=== PATIENT | male | born 2000 | race Caucasian/White ===

== ENCOUNTER 2019-09-13 12:03 | Emergency (ER) | payer OTHER ==
[~2019-09-13] VITALS: Ht 177.8 cm; Wt 99.8 kg
[~2019-09-13 12:03] MED LIST: IBUP600 PO; MOM; [UNRECOGNIZED DRUG - OTHER]
== END 2019-09-13 13:49 | disposition home or self-care (01) ==
LOC: ER 12:03
DX: S61.012A Laceration without foreign body of left thumb without damage to nail, initial encounter (principal); W45.8XXA Other foreign body or object entering through skin, initial encounter
CPT/HCPCS: 12002; 99282-25

== ENCOUNTER 2022-11-11 00:50 | Emergency (ER) | payer OTHER ==
[~2022-11-11] VITALS: Ht 175.3 cm; Wt 90.7 kg
== END 2022-11-11 01:34 | disposition home or self-care (01) ==
LOC: ER 00:50
DX: S62.307A Unspecified fracture of fifth metacarpal bone, left hand, initial encounter for closed fracture (principal); W22.01XA Walked into wall, initial encounter
CPT/HCPCS: 29125; 73130; 99283-25; A9270